=== PATIENT | female | born 1975 | race Caucasian/White ===

== ENCOUNTER 2017-09-22 14:47 | Emergency (ER) | payer OTHER, SELFPAY ==
[2017-09-22 15:05] VITALS: BP 110/69
[2017-09-22] MEDS ORDERED: Aspirin 81 MG Tab.Chew PO ONE (15:27)
[2017-09-22] MEDS ORDERED: Ondansetron 4 MG/2 ML SDV IVPUSH ONE (15:27)
[2017-09-22] MEDS ORDERED: Sodium Chloride 0.9% 10 ML Syringe FLUSH PRN (15:27)
[2017-09-22] MEDS ORDERED: Ketorolac 30 MG/ML SDV IVPUSH ONE (15:27)
--- NOTE | 2017-09-22 15:33 | EDM.PDOC ---
ED HPI GENERAL MEDICAL PROBLEM - General Chief Complaint: Chest Pain Stated Complaint: CHEST PAIN Time Seen by Provider: 09/22/17 15:20 Source of Information: Reports: Patient History Limitations: Reports: No Limitations - History of Present Illness INITIAL COMMENTS - FREE TEXT/NARRATIVE: 42-year-old female presents for evaluation and treatment of chest pain. Patient reports that the chest pain started some by time between noon and 1300. She states at the time she was sitting watching TV. She reports feeling a discomfort located in the center of her chest that shoots into her left axilla. She denies any radiation into her neck or back. She reports associated symptoms of shortness of breath, nausea, headaches and dizziness. She denies any vomiting or syncope. Patient describes the pain as more of a pressure. She states she's never had anything like this before. No treatments prior to arrival in the ER. Reports movement seems to worsen the pain. She denies any trauma to the chest. Patient reports she smokes 2-3 cigarettes per day. Patient denies any cardiac history herself. She reports no family history of any MIs at a young age. Review the patient's records shows she has been seen in the [facility] ER on several occasions. She was seen in [place] on August 19, 2017 for chest pain. She states that her chest pain today feels different than that time. She states at that time she was coughing and fevers which she does not have today. Review the patient's records also should she she has been seen numerous times for migraines. She states that she does have frequent migraines when asked about these. Patient denies any alcohol use. Patient denies any drug use. 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 History: Neurological History: Reports: Migraines Psychiatric History: Reports: Addiction, Anxiety Other Psychiatric History: states that she has been sober and clean for 5 years Oncologic (Cancer) History: Reports: Cervix - Infectious Disease History Infectious Disease History: Reports: Chicken Pox - Past Surgical History HEENT Surgical History: Reports: Adenoidectomy, Tonsillectomy GI Surgical History: Reports: Appendectomy, Cholecystectomy Female Surgical History: Reports: Hysterectomy Social & Family History - Family History Family Medical History: Noncontributory Cardiac: Reports: CAD Respiratory: Reports: Asthma Oncologic: Reports: Lung - Tobacco Use Smoking Status *Q: Current Every Day Smoker Years of Tobacco use: 20 Packs/Tins Daily: 0.4 Used Tobacco, but Quit: No Second Hand Smoke Exposure: No - Caffeine Use Caffeine Use: Reports: Energy Drinks Other Caffeine Use: does have monster drinks about 3-4 daily Caffeine Use Comment: 5-6drinks/day - Alcohol Use Days Per Week of Alcohol Use: 0 - Recreational Drug Use Recreational Drug Use: No Drug Use in Last 12 Months: No Recreational Drug Type: Reports: Methamphetamine Recreational Drug Use Frequency: Not Used In Over 6 Months - Living Situation & Occupation Living situation: Reports: with Family ED ROS GENERAL - Review of Systems Review Of Systems: See Below Constitutional: Denies: Fever Respiratory: Reports: Shortness of Breath. Denies: Cough Cardiovascular: Reports: Chest Pain (substernal radiating to left axilla) GI/Abdominal: Reports: Nausea. Denies: Abdominal Pain, Vomiting Neurological: Reports: Dizziness. Denies: Syncope ED EXAM, GENERAL - Physical Exam Exam: See Below Exam Limited By: No Limitations General Appearance: Alert, WD/WN, No Apparent Distress Eye Exam: Bilateral Eye: Normal Inspection Ears: Normal External Exam Nose: Normal Inspection Throat/Mouth: Normal Inspection, Normal Lips, Normal Voice, No Airway Compromise Neck: Normal Inspection Respiratory/Chest: No Respiratory Distress, Lungs Clear, Normal Breath Sounds, Other (tenderness to the chest to the costal/sternal border around ribs 3 and 4 right sided) Cardiovascular: Normal Peripheral Pulses, Regular Rate, Rhythm, No Murmur GI/Abdominal: Soft, Non-Tender Neurological: Alert, Oriented, Normal Cognition Psychiatric: Normal Affect, Normal Mood Skin Exam: Warm, Dry, Normal Color EKG INTERPRETATION EKG Date: 09/22/17 Time: 16:10 Rhythm: NSR Rate (Beats/Min): 76 [place]: Normal P-Wave: Present QRS: Normal ST-T: Normal QT: Normal EKG Interpretation Comments: NSR at 76 bpm. No acute changes. Reviewed by myself and Dr. Leonard. Course - Vital Signs Last Recorded V/S: Last Vital Signs Temp 36.1 C 09/22/17 15:04 Pulse 86 09/22/17 15:04 Resp 12 09/22/17 15:04 BP 110/69 09/22/17 15:04 Pulse Ox 100 09/22/17 15:04 - Orders/Labs/Meds Orders: Active Orders 24 hr Category Date Time Status Cardiac Monitoring [RC] . DIRECTED Care 09/22/17 15:27 Active EKG Documentation Completion [RC] ASDIRECTED Care 09/22/17 15:03 Active Peripheral IV Care [RC] . DIRECTED Care 09/22/17 15:27 Active Chest 1V Frontal [CR] Stat Exams 09/22/17 15:27 Taken Peripheral IV Insertion Adult [OM.PC] Routine Oth 09/22/17 15:26 Ordered EKG 12 Lead [EK] Stat Ther 09/22/17 15:03 Ordered Labs: Laboratory Tests 09/22/17 09/22/17 09/22/17 Range/Units 16:55 16:55 16:55 WBC 12.18 H (3.98-10.04) K/mm3 RBC 4.27 (3.98-5.22) M/mm3 Hgb 13.6 (11.2-15.7) gm/L Hct 42.1 (34.1-44.9) % MCV 98.6 H (79.4-94.8) fl MCH 31.9 (25.6-32.2) pg MCHC 32.3 (32.2-35.5) g/dl RDW Std Deviation 48.4 H (36.4-46.3) fL Plt Count 244 (182-369) K/mm3 MPV 10.4 (9.4-12.3) fl Neutrophils % (Manual) 58 (40-60) % Band Neutrophils % 1 (0-10) % Lymphocytes % (Manual) 34 (20-40) % Atypical Lymphs % 0 % Monocytes % (Manual) 6 (2-10) % Eosinophils % (Manual) 0 L (0.7-5.8) % Basophils % (Manual) 1 (0.1-1.2) Platelet Estimate Adequate RBC Morph Comment Normal D-Dimer, Quantitative 0.27 (0.19-0.59) mg/L Sodium 141 (136-145) mEq/L Potassium 4.2 (3.5-5.1) mEq/L Chloride 107 (98-107) mEq/L Carbon Dioxide 25 (21-32) mEq/L Anion Gap 13.2 (5-15) BUN 11 (7-18) mg/dL Creatinine 0.8 (0.55-1.02) mg/dL Est Cr Clr Drug Dosing 73.93 mL/min Estimated GFR (MDRD) > 60 (>60) mL/min BUN/Creatinine Ratio 13.8 L (14-18) Glucose 97 (74-106) mg/dL Calcium 8.5 (8.5-10.1) mg/dL Total Bilirubin 0.1 L (0.2-1.0) mg/dL AST 23 (15-37) U/L ALT 28 (14-59) U/L Alkaline Phosphatase 66 (46-116) U/L Troponin I < 0.017 (0.00-0.056) ng/mL C-Reactive Protein < 0.2 (<1.0) mg/dL Total Protein 5.9 L (6.4-8.2) g/dl Albumin 3.1 L (3.4-5.0) g/dl Globulin 2.8 gm/dL Albumin/Globulin Ratio 1.1 (1-2) Lipase 131 (73-393) U/L 09/22/17 Range/Units 18:15 WBC (3.98-10.04) K/mm3 RBC (3.98-5.22) M/mm3 Hgb (11.2-15.7) gm/L Hct (34.1-44.9) % MCV (79.4-94.8) fl MCH (25.6-32.2) pg MCHC (32.2-35.5) g/dl RDW Std Deviation (36.4-46.3) fL Plt Count (182-369) K/mm3 MPV (9.4-12.3) fl Neutrophils % (Manual) (40-60) % Band Neutrophils % (0-10) % Lymphocytes % (Manual) (20-40) % Atypical Lymphs % % Monocytes % (Manual) (2-10) % Eosinophils % (Manual) (0.7-5.8) % Basophils % (Manual) (0.1-1.2) Platelet Estimate RBC Morph Comment D-Dimer, Quantitative (0.19-0.59) mg/L Sodium (136-145) mEq/L Potassium (3.5-5.1) mEq/L Chloride (98-107) mEq/L Carbon Dioxide (21-32) mEq/L Anion Gap (5-15) BUN (7-18) mg/dL Creatinine (0.55-1.02) mg/dL Est Cr Clr Drug Dosing mL/min Estimated GFR (MDRD) (>60) mL/min BUN/Creatinine Ratio (14-18) Glucose (74-106) mg/dL Calcium (8.5-10.1) mg/dL Total Bilirubin (0.2-1.0) mg/dL AST (15-37) U/L ALT (14-59) U/L Alkaline Phosphatase (46-116) U/L Troponin I < 0.017 (0.00-0.056) ng/mL C-Reactive Protein (<1.0) mg/dL Total Protein (6.4-8.2) g/dl Albumin (3.4-5.0) g/dl Globulin gm/dL Albumin/Globulin Ratio (1-2) Lipase (73-393) U/L Meds: Medications Discontinued Medications Generic Name Dose Route Start Last Admin Trade Name Soniya PRN Reason Stop Dose Admin Acetaminophen 975 mg 09/22/17 18:11 09/22/17 18:31 Tylenol PO 09/22/17 18:12 975 mg NOW ONE Administration Aspirin 324 mg 09/22/17 15:27 09/22/17 15:41 Aspirin PO 09/22/17 15:28 324 mg ONETIME ONE Administration Diphenhydramine HCl 25 mg 09/22/17 15:59 09/22/17 16:17 Benadryl PO 09/22/17 16:00 25 mg ONETIME ONE Administration Ketorolac Tromethamine 30 mg 09/22/17 15:27 09/22/17 15:46 Toradol IVPUSH 09/22/17 15:28 30 mg ONETIME ONE Administration Ondansetron HCl 4 mg 09/22/17 15:27 09/22/17 15:45 Zofran IVPUSH 09/22/17 15:28 4 mg ONETIME ONE Administration Sodium Chloride 10 ml 09/22/17 15:27 09/22/17 15:47 Saline Flush FLUSH 10 ml ASDIRECTED PRN Administration Keep Vein Open - Radiology Interpretation Free Text/Narrative:: chest xray shows no acute intrathoracic process. - Re-Assessments/Exams Free Text/Narrative Re-Assessment/Exam: 09/22/17 16:00 Nursing staff informed me that she is having some swelling and redness to her IV site after receiving the Toradol and Zofran. She has received both of these medications in the past without any problems. She is complaining of itchiness to the area. Nursing staff went ahead and pulled her IV at this time. We will give her 25 mg by mouth Benadryl. Plan will be continue to monitor and repeat trop for a 3 hour trop. 09/22/17 19:03 Patient's reported earlier that her chest pain did not resolve with the Toradol and Zofran. Order her some acetaminophen. Given her hypotension, and her documented history of drug abuse I do not feel that she needs narcotics. She is resting comfortable at this time. Repeat trop returned negative at < 0.017 I will discharge her home at this time. Discharge instructions as documented. Departure - Departure Time of Disposition: 19:04 Disposition: Home, Self-Care 01 Condition: Good Clinical Impression: Chest wall pain Instructions: Chest Wall Pain, [id number] Referrals: PCP,None [Primary Care Provider] - Forms: ED Department Discharge Additional Instructions: [id number] Tylenol or Motrin as needed for pain relief. may try ice or heat to the sore area for additional pain relief. may also try topical products such as that he had a BenGay. Recommend follow-up with family medicine or internal medicine in 1-2 weeks to recheck of your symptoms. Recommend Dr. Tillman here at the [facility]. Call [phone] to schedule with him. Please return to the ER if your symptoms change or worsen. - My Orders Last 24 Hours: My Active Orders 09/22/17 15:03 EKG Documentation Completion [RC] ASDIRECTED EKG 12 Lead [EK] Stat 09/22/17 15:26 Peripheral IV Insertion Adult [OM.PC] Routine 09/22/17 15:27 Cardiac Monitoring [RC] . DIRECTED Peripheral IV Care [RC] . DIRECTED Chest 1V Frontal [CR] Stat - Assessment/Plan Last 24 Hours: My Active Orders 09/22/17 15:03 EKG Documentation Completion [RC] ASDIRECTED EKG 12 Lead [EK] Stat 09/22/17 15:26 Peripheral IV Insertion Adult [OM.PC] Routine 09/22/17 15:27 Cardiac Monitoring [RC] . DIRECTED Peripheral IV Care [RC] . DIRECTED Chest 1V Frontal [CR] Stat
[2017-09-22] MEDS ORDERED: diphenhydrAMINE 25 MG Cap PO ONE (15:59)
[2017-09-22] MEDS ORDERED: Acetaminophen 325 MG Tab PO ONE (18:11)
--- NOTE | 2017-09-23 12:22 | CR ---
Chest: Portable view of the chest was obtained. Comparison: Prior chest x-ray of 09/15/15. Heart size and mediastinum are within normal limits. Lungs are clear. Bony structures appear grossly intact. Impression: 1. Nothing acute is appreciated on portable chest x-ray. No significant change is seen from prior chest x-ray. Diagnostic code #1
== END 2017-09-22 19:10 | disposition home or self-care (01) ==
LOC: JD.ED 14:47 → EEVIPCON 14:47 → JD.ED 19:10
DX: R07.89 Other chest pain (principal); F17.210 Nicotine dependence, cigarettes, uncomplicated; Z88.2 Allergy status to sulfonamides
CPT/HCPCS: 36415; 71045; 80053; 83690; 84484; 85025; 85379; 86140; 93005; 96374; 96375; 99285; A9270; J1885; J2405; J7050; 93010; 99284

== ENCOUNTER 2017-10-26 07:27 | Emergency (ER) | payer SELFPAY ==
[2017-10-26 07:37] VITALS: BP 112/71
--- NOTE | 2017-10-26 08:12 | EDM.PDOC ---
ED HPI GENERAL MEDICAL PROBLEM - General Chief Complaint: General Stated Complaint: BODY ACHES,CHILLS,DIARRHEA Time Seen by Provider: 10/26/17 07:44 Source of Information: Reports: Patient, RN Notes Reviewed - History of Present Illness INITIAL COMMENTS - FREE TEXT/NARRATIVE: 42-year-old female with onset of cough and congestion, scratchy throat to 3 days ago. During the night she developed headache, chills, possible fever and generalized myalgias. Feels too sick to work today. She states I just feel achy all over. Cough is mostly nonproductive. clear nasal drainage. 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 History: Neurological History: Reports: Migraines Psychiatric History: Reports: Addiction, Anxiety Other Psychiatric History: states that she has been sober and clean for 5 years Oncologic (Cancer) History: Reports: Cervix - Infectious Disease History Infectious Disease History: Reports: Chicken Pox - Past Surgical History HEENT Surgical History: Reports: Adenoidectomy, Tonsillectomy GI Surgical History: Reports: Appendectomy, Cholecystectomy Female Surgical History: Reports: Hysterectomy Social & Family History - Family History Family Medical History: Noncontributory Cardiac: Reports: CAD Respiratory: Reports: Asthma Oncologic: Reports: Lung - Tobacco Use Smoking Status *Q: Unknown Ever Smoked Years of Tobacco use: 20 Packs/Tins Daily: 0.4 Used Tobacco, but Quit: No Second Hand Smoke Exposure: No - Caffeine Use Caffeine Use: Reports: Energy Drinks Other Caffeine Use: does have monster drinks about 3-4 daily Caffeine Use Comment: 5-6drinks/day - Alcohol Use Days Per Week of Alcohol Use: 0 - Recreational Drug Use Recreational Drug Use: No Drug Use in Last 12 Months: No Recreational Drug Type: Reports: Methamphetamine Recreational Drug Use Frequency: Not Used In Over 6 Months - Living Situation & Occupation Living situation: Reports: with Family ED ROS GENERAL - Review of Systems Review Of Systems: See Below Constitutional: Reports: Fever, Chills HEENT: Reports: Rhinitis, Throat Pain Respiratory: Reports: Cough. Denies: Shortness of Breath, Pleuritic Chest Pain Cardiovascular: Reports: Chest Pain GI/Abdominal: Denies: Abdominal Pain (With coughing), Nausea, Vomiting Musculoskeletal: Reports: Other Skin: Denies: Rash (Generalized achiness) Neurological: Reports: Headache ED EXAM, GENERAL - Physical Exam Exam: See Below General Appearance: Alert, Mild Distress Eye Exam: Bilateral Eye: PERRL Nose: Nasal Drainage Throat/Mouth: Normal Inspection Head: No: Facial Swelling Neck: Supple, Full Range of Motion Respiratory/Chest: No Respiratory Distress, Lungs Clear, Normal Breath Sounds, No Accessory Muscle Use. No: Rhonchi, Wheezing Cardiovascular: Regular Rate, Rhythm Extremities: Normal Inspection, Normal Range of Motion Neurological: Alert, Oriented, No Motor/Sensory Deficits Skin Exam: Warm, Dry, Normal Color Course - Vital Signs Last Recorded V/S: Last Vital Signs Temp 98.6 F 10/26/17 07:35 Pulse 70 10/26/17 07:35 Resp 18 10/26/17 07:35 BP 112/71 10/26/17 07:35 Pulse Ox 99 10/26/17 07:35 Departure - Departure Time of Disposition: 08:10 Disposition: Home, Self-Care 01 Condition: Fair Clinical Impression: Influenza - Discharge Information Referrals: PCP,None [Primary Care Provider] - Forms: ED Department Discharge, ED Return to Work/School Form Additional Instructions: Rest, vaporizer or steam as needed, alternate Tylenol and ibuprofen as needed for discomfort, decongestant as needed. Follow-up clinic if not much better within 3-4 days as expected, you will likely have a cough that may last for another week or 2 but also should gradually get better day by day next week. Return to ED as needed.
== END 2017-10-26 08:20 | disposition home or self-care (01) ==
LOC: JD.ED 07:27
DX: J11.1 Influenza due to unidentified influenza virus with other respiratory manifestations (principal); Z72.0 Tobacco use; Z88.5 Allergy status to narcotic agent; Z88.2 Allergy status to sulfonamides; Z88.8 Allergy status to other drugs, medicaments and biological substances
CPT/HCPCS: 99283

== ENCOUNTER 2017-11-23 09:48 | Emergency (ER) | payer SELFPAY ==
--- NOTE | 2017-11-23 11:16 | EDM.PDOC ---
ED HPI GENERAL MEDICAL PROBLEM - General Chief Complaint: Headache Stated Complaint: HEADACHE/NAUSEA Time Seen by Provider: 11/23/17 10:28 Source of Information: Reports: Patient - History of Present Illness INITIAL COMMENTS - FREE TEXT/NARRATIVE: Patient is here for evaluation of a migraine headache. She does get these on a regular basis he is supposed to be on topiramate daily but she cannot afford this and does not have insurance so she has not been taking it. She states that the per minute and currently is the same as her previous ones, she does not note any difference today. She is presenting to the emergency room as it has persisted for 3 days. She denies any changes in vision but does have some photophobia. She denies any behavioral changes or weakness. Patient denies any other medical history, has a remote history of drug use but none recently. She does note a high intake of caffeine. 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 LMP 10+ years ago when she had a hysterectomy. Headache Pain Score (Numeric/FACES): 9 - Related Data Allergies Allergy/AdvReac Type Severity Reaction Status Date / Time morphine [From Embeda] Allergy Rash Verified 11/23/17 10:05 naltrexone [From Embeda] Allergy Rash Verified 11/23/17 10:05 Sulfa (Sulfonamide Allergy Rash Verified 11/23/17 10:05 Antibiotics) zolmitriptan [From Zomig] Allergy Rash Verified 11/23/17 10:05 Home Meds: Home Meds . 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 History: Neurological History: Reports: Migraines Psychiatric History: Reports: Addiction, Anxiety Other Psychiatric History: states that she has been sober and clean for 5 years Oncologic (Cancer) History: Reports: Cervix - Infectious Disease History Infectious Disease History: Reports: Chicken Pox - Past Surgical History HEENT Surgical History: Reports: Adenoidectomy, Tonsillectomy GI Surgical History: Reports: Appendectomy, Cholecystectomy Female Surgical History: Reports: Hysterectomy Social & Family History - Family History Family Medical History: Noncontributory Cardiac: Reports: CAD Respiratory: Reports: Asthma Oncologic: Reports: Lung - Tobacco Use Smoking Status *Q: Former Smoker Years of Tobacco use: 20 Packs/Tins Daily: 0.1 Used Tobacco, but Quit: No Second Hand Smoke Exposure: No - Caffeine Use Caffeine Use: Reports: Coffee Other Caffeine Use: does have monster drinks about 3-4 daily Caffeine Use Comment: 5-6drinks/day - Alcohol Use Days Per Week of Alcohol Use: 0 - Recreational Drug Use Recreational Drug Use: No Drug Use in Last 12 Months: No Recreational Drug Type: Reports: Methamphetamine Recreational Drug Use Frequency: Not Used In Over 6 Months - Living Situation & Occupation Living situation: Reports: with Family ED ROS GENERAL - Review of Systems Review Of Systems: See Below Constitutional: Reports: Decreased Appetite. Denies: Fever, Chills, Malaise HEENT: Denies: Ear Pain, Sinus Problem, Vision Change Respiratory: Reports: No Symptoms Cardiovascular: Reports: No Symptoms GI/Abdominal: Reports: Diarrhea, Decreased Appetite. Denies: Abdominal Pain, Nausea, Vomiting : Reports: No Symptoms Musculoskeletal: Reports: Muscle Stiffness, Other (Neck pain and stiffness) Skin: Reports: No Symptoms Neurological: Denies: Confusion, Dizziness, Seizure, Change in Speech, Gait Disturbance Psychiatric: Reports: Anxiety. Denies: Confusion, Depression, Suicidal Ideation - Physical Exam Exam: See Below Exam Limited By: No Limitations General Appearance: Alert, WD/WN, Mild Distress Eye Exam: Bilateral Eye: Normal Inspection, PERRL Ears: Normal External Exam, Normal Canal, Normal TMs Nose: Normal Inspection Throat/Mouth: Normal Inspection, Normal Lips, Normal Oropharynx Head Exam: Atraumatic, Normocephalic Neck: Normal Inspection, Supple, Non-Tender Respiratory/Chest: No Respiratory Distress, Lungs Clear, Normal Breath Sounds Cardiovascular: Normal Peripheral Pulses, Regular Rate, Rhythm, No Murmur GI/Abdominal: Normal Bowel Sounds, Soft, Non-Tender Neuro Exam (Abbreviated): Alert, Oriented, CN II-XII Intact, Normal Cognition, No Motor/Sensory Deficits Back Exam: Full Range of Motion, Muscle Spasm (Cervical) Psychiatric: Normal Affect, Normal Mood Skin Exam: Warm, Dry, Intact Course - Vital Signs Last Recorded V/S: Last Vital Signs Temp 97.4 F 11/23/17 10:02 Pulse 68 11/23/17 10:02 Resp 16 03/16/18 10:02 BP 109/70 11/23/17 10:02 Pulse Ox 100 11/23/17 10:02 - Orders/Labs/Meds Meds: Medications Discontinued Medications Generic Name Dose Route Start Last Admin Trade Name Soniya PRN Reason Stop Dose Admin Diphenhydramine HCl 50 mg 11/23/17 12:58 11/23/17 13:08 Benadryl PO 11/23/17 12:59 50 mg ONETIME ONE Administration Sodium Chloride 1,000 mls @ 999 mls/hr 11/23/17 11:34 11/23/17 12:23 Normal Saline IV 11/23/17 12:34 999 mls/hr ONETIME ONE Administration Ketorolac Tromethamine 60 mg 11/23/17 11:34 11/23/17 12:25 Toradol IVPUSH 11/23/17 11:35 Not Given ONETIME ONE Ketorolac Tromethamine 30 mg 11/23/17 12:15 11/23/17 12:21 Toradol IVPUSH 11/23/17 12:16 30 mg ONETIME ONE Administration Metoclopramide HCl 5 mg 11/23/17 12:58 11/23/17 13:08 Reglan IVPUSH 11/23/17 12:59 5 mg ONETIME ONE Administration - Re-Assessments/Exams Free Text/Narrative Re-Assessment/Exam: Persistent migraine which is similar in nature 12 her previous migraines. Neurological exam is normal today. Will start IV fluids and give 30 mg ketorolac. 11/23/17 12:10 Patient's pain persisted she was given Reglan and Benadryl and this improved her headache significantly. She is requesting to be discharged and I feel that this is a reasonable option. Discussed with patient the need to establish with a primary provider so she can be on prophylactic medication. She certainly may return to emergency room if needed. I also recommend that she meet with social worker assistant to seek help in getting insurance. I recommend a daily supplement of 400 mg riboflavin in headache prevention as well. 11/23/17 13:23 11/23/17 13:25 Departure - Departure Time of Disposition: 13:17 Disposition: Home, Self-Care 01 Condition: Good Clinical Impression: Migraine headache Qualifiers: Migraine type: other Status migrainosus presence: without status migrainosus Intractability: not intractable Qualified Code(s): G43.809 - Other migraine, not intractable, without status migrainosus - Discharge Information Instructions: Migraine Headache Referrals: PCP,None [Primary Care Provider] - Forms: ED Department Discharge Additional Instructions: You were treated in the emergency room for migraine headache. I recommend that you consider looking into insurance options that you can be on preventative medication. I would like him to start a supplement of 400 mg riboflavin daily to help with headache prevention, you can purchase this [id number] at [facility] or any pharmacy. You should also taper back on the amount of caffeine intake daily. You need to establish with a primary provider, certainly return to the emergency room if needed.
[2017-11-23] MEDS ORDERED: Ketorolac 30 MG/ML SDV IVPUSH ONE ×2 (11:34→12:15)
[2017-11-23] MEDS ORDERED: Sodium Chloride 0.9% 1,000 ML IV ONE (11:34)
[2017-11-23] MEDS ORDERED: diphenhydrAMINE 50 MG Cap PO ONE (12:58)
[2017-11-23] MEDS ORDERED: Metoclopramide 10 MG/2 ML SDV IVPUSH ONE (12:58)
[2017-11-23 13:36] VITALS: BP 110/67
== END 2017-11-23 13:30 | disposition home or self-care (01) ==
LOC: JD.ED 09:48
DX: G43.809 Other migraine, not intractable, without status migrainosus (principal); Z87.891 Personal history of nicotine dependence; Z88.5 Allergy status to narcotic agent; Z88.2 Allergy status to sulfonamides; Z88.8 Allergy status to other drugs, medicaments and biological substances; Z90.710 Acquired absence of both cervix and uterus
CPT/HCPCS: 96361; 96374; 96375; 99284; A9270; J1885; J2765; J7040

== ENCOUNTER 2017-12-02 18:38 | Emergency (ER) | payer OTHER ==
[2017-12-02 19:54] VITALS: BP 126/88
[2017-12-02] MEDS ORDERED: Orphenadrine 100 MG Tab.ER PO STA (20:54)
[2017-12-02] MEDS ORDERED: Naproxen 500 MG Tab PO ONE (20:55)
--- NOTE | 2017-12-02 21:01 | EDM.PDOC ---
ED HPI GENERAL MEDICAL PROBLEM - General Chief Complaint: Back Pain or Injury Stated Complaint: FALL BACK PAIN Time Seen by Provider: 12/02/17 19:47 Source of Information: Reports: Patient, Old Records ([facility] 11/29/2017) History Limitations: Reports: No Limitations - History of Present Illness INITIAL COMMENTS - FREE TEXT/NARRATIVE: The patient states that she fell at work this past Sunday night, 11/28/2017, landing on her right buttock. She states that she was seen at the [facility] the following day, , 11/29/2017. She states that x-rays were taken, which were negative. She was prescribed Flexeril and diclofenac, however, she has not filled either of these prescriptions. She states that this morning, she felt 3 "pops" in her back. She went to work, but had come early because of back pain. Once home, her back popped again, and her knees buckled. She states that she is able to walk, but when her back popped , she had almost immediate diarrhea at that time. She complains of pain to her sacral area, radiating up her back and down the posterior aspect of her right thigh to the mid thigh. She is most comfortable while lying in a left lateral position. She denies prior back problems. Review of medical records from [facility] dated 11/29/2017 supports the patient 's history, although she reported to the [facility] EDP that the pain radiated down all the way to her right foot. Lumbar radiographs were negative. The patient acknowledges that she has a history of methamphetamine abuse, but that she has not used for 5 years. The patient does not have a PCP. 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: : 6 Para: 4 Neurological History: Reports: Migraines Psychiatric History: Reports: Addiction (methamphetamine), Anxiety Hematologic History: Reports: Blood Transfusion(s) Oncologic (Cancer) History: Reports: Cervix - Infectious Disease History Infectious Disease History: Reports: Chicken Pox - Past Surgical History HEENT Surgical History: Reports: Adenoidectomy, Tonsillectomy GI Surgical History: Reports: Appendectomy, Cholecystectomy, Lysis of Adhesions (x 2) Female Surgical History: Reports: Hysterectomy Social & Family History - Family History Family Medical History: Noncontributory Cardiac: Reports: CAD Respiratory: Reports: Asthma Oncologic: Reports: Lung - Tobacco Use Smoking Status *Q: Current Every Day Smoker Years of Tobacco use: 28 Packs/Tins Daily: 0.3 Packs/Tins Daily Comment: Down from 1 ppd - Caffeine Use Caffeine Use: Reports: Coffee, Soda Other Caffeine Use: does have monster drinks about 3-4 daily Caffeine Use Comment: 5-6drinks/day - Alcohol Use Alcohol Use History: Yes Days Per Week of Alcohol Use: 0 Alcohol Use Frequency: Socially - Recreational Drug Use Recreational Drug Use: Yes Drug Use in Last 12 Months: No Recreational Drug Type: Reports: Methamphetamine (last used 2012) - Living Situation & Occupation Living situation: Reports: , with Family (Mother, 2 kids) 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 ED EXAM,LOWER BACK PAIN/INJURY - Physical Exam Exam: See Below Exam Limited By: No Limitations General Appearance: Alert, WD/WN, Anxious Back Exam: Other (No visible abnormality to the patient's lower back or right buttock, such as swelling, erythema, ecchymosis, or abrasion. The patient reports tenderness to palpation along the entire lumbar spinous processes, sacrum, and right buttock. She also reports tenderness to the lumbar paraspinous , but not as bad as the spinous process tenderness. Straight leg raise on the left is negative at 90. Straight leg raise on the right induces right hip pain at 70. The patient is able to sit on the gurney with her legs extended at 90. She is able to flex the spine to 90 when standing. She is able to extend the spine to 20. She is able to tilt to the left to 10-15, and to the right to 10 . She is able to twist the spine to 30 bilaterally. Unilateral knee bend is normal bilaterally.) Course - Vital Signs Last Recorded V/S: Last Vital Signs Temp 36.4 C 12/02/17 19:50 Pulse 88 12/02/17 19:50 Resp 18 12/02/17 19:50 BP 126/88 12/02/17 19:50 Pulse Ox 99 12/02/17 19:50 - Orders/Labs/Meds Meds: Medications Discontinued Medications Generic Name Dose Route Start Last Admin Trade Name Soniya PRN Reason Stop Dose Admin Naproxen 500 mg 12/02/17 20:55 12/02/17 21:01 Naprosyn PO 12/02/17 20:56 500 mg ONETIME ONE Administration Orphenadrine Citrate 100 mg 12/02/17 20:54 12/02/17 21:01 Norflex PO 12/02/17 20:55 100 mg ONETIME STA Administration - Re-Assessments/Exams Free Text/Narrative Re-Assessment/Exam: 12/02/17 20:57 Significant delay in discharging the patient due to my attending to a critically ill patient. I don't believe that the patient is drug-seeking, but there are some curious findings on her physical exam, including tenderness to the spinous processes, which would only occur if she had a spinous process fracture or a tear in an intraspinous ligament. Further, she reports significant pain in her right hip with a straight leg raise to 70, yet she is able to sit on the gurney with both of her legs outstretched, flexed at 90, and is able to flex the spine to 90 while standing. To account for these inconsistencies, I suspect that the patient does in fact have some pain to her lower back, right buttock, with some radicular symptoms going down her right lower extremity, but she may have felt that she would not be believed if she did not imply tenderness and pain on exam. Based on the patient's history and physical examination, she MAY have a herniated intervertebral disc on the right. She was prescribed Flexeril and diclofenac at the [facility] on 11/29/2017, however, she has not yet filled the prescriptions. I am recommending that we prescribe Norflex instead of Flexeril, but I agree with diclofenac. I will refer her to Dr. Krista Terrazas for follow-up. Departure - Departure Time of Disposition: 20:58 Disposition: Home, Self-Care 01 Condition: Good Clinical Impression: Low back pain - Discharge Information Prescriptions: Orphenadrine [Norflex] 1 tab PO Q12H PRN #14 tab.er PRN Reason: Muscle Spasm Instructions: Back Pain, Adult, [id number] Referrals: PCP,None [Primary Care Provider] - Krista Terrazas MD [Physician] - Forms: ED Department Discharge Additional Instructions: You were seen in the emergency room for low back pain radiating down the back of your right thigh after a fall at work on 11/28/2017. Based on your history and physical examination, you MAY have a herniated intervertebral disc. You were previously prescribed Flexeril and diclofenac, but have not filled either prescription. We recommend that instead of Flexeril, you take Norflex. A prescription for this [facility] been [facility]. Take one tablet every 12 hours, as prescribed. We agree with the prescription for diclofenac. Take as prescribed, with food. Follow-up with Dr. Krista Terrazas as a primary care physician. If any other problems, please do not hesitate to return to the ER.
== END 2017-12-02 21:10 | disposition home or self-care (01) ==
LOC: JD.ED 18:38
DX: M54.5 Low back pain (principal); F17.210 Nicotine dependence, cigarettes, uncomplicated; Z88.2 Allergy status to sulfonamides; Z88.8 Allergy status to other drugs, medicaments and biological substances; Z88.5 Allergy status to narcotic agent; W19.XXXA Unspecified fall, initial encounter; Y99.0 Civilian activity done for income or pay
CPT/HCPCS: 99283; A9270

== ENCOUNTER 2017-12-15 22:07 | Emergency (ER) | payer MEDICAID, OTHER ==
[2017-12-15 22:18] VITALS: BP 116/81
--- NOTE | 2017-12-15 22:57 | EDM.PDOC ---
ED HPI GENERAL MEDICAL PROBLEM - General Chief Complaint: Chest Pain Stated Complaint: CHEST PAINS Time Seen by Provider: 12/15/17 22:32 Source of Information: Reports: Patient History Limitations: Reports: No Limitations - History of Present Illness INITIAL COMMENTS - FREE TEXT/NARRATIVE: This is a 42-year-old female. She was working at [employer] when she became stressed guarded hyperventilating developed chest pain and then had one of her coworkers bring her to the ER. She lives in [place] with her mother and she states that she works all the time only has Sunday and Sunday off. She says she works all the time and she stressed out and she is depressed and the last culture she talked to a [facility] so she has no one to talk to. She feels dumb for being here she keeps apologizing for bothering us. She is crying during the interview stated that she scared and anything that bothers her the most is not happening now but happened when she was at [employer] that she would get twitching in her face. She complains of generalized chest tightness or pain that does not go into her neck or down her arms. She has no nausea and vomiting she has no diaphoresis. Chest Pain Score (Numeric/FACES): 9 - Related Data Allergies Allergy/AdvReac Type Severity Reaction Status Date / Time morphine [From Embeda] Allergy Rash Verified 12/15/17 22:14 naltrexone [From Embeda] Allergy Rash Verified 12/15/17 22:14 Sulfa (Sulfonamide Allergy Rash Verified 12/15/17 22:14 Antibiotics) zolmitriptan [From Zomig] Allergy Rash Verified 12/15/17 22:14 Home Meds: Home Meds Orphenadrine [Norflex] 1 tab PO Q12H PRN #14 tab.er 12/02/17 [Rx] Diclofenac? 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 History: Neurological History: Reports: Migraines Psychiatric History: Reports: Addiction, Anxiety Other Psychiatric History: states that she has been sober and clean for 5 years Hematologic History: Reports: Blood Transfusion(s) Oncologic (Cancer) History: Reports: Cervix - Infectious Disease History Infectious Disease History: Reports: Chicken Pox - Past Surgical History HEENT Surgical History: Reports: Adenoidectomy, Tonsillectomy GI Surgical History: Reports: Appendectomy, Cholecystectomy, Lysis of Adhesions Female Surgical History: Reports: Hysterectomy Social & Family History - Family History Family Medical History: Noncontributory Cardiac: Reports: CAD Respiratory: Reports: Asthma Oncologic: Reports: Lung - Tobacco Use Smoking Status *Q: Current Every Day Smoker Years of Tobacco use: 20 Packs/Tins Daily: 0.1 Used Tobacco, but Quit: No Second Hand Smoke Exposure: No - Caffeine Use Caffeine Use: Reports: Coffee, Soda Other Caffeine Use: does have monster drinks about 3-4 daily Caffeine Use Comment: 5-6drinks/day - Alcohol Use Days Per Week of Alcohol Use: 0 - Recreational Drug Use Recreational Drug Use: Yes Drug Use in Last 12 Months: No Recreational Drug Type: Reports: Methamphetamine (last used 2012) Recreational Drug Use Frequency: Not Used In Over 6 Months - Living Situation & Occupation Living situation: Reports: , with Family (Mother, 2 kids) 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 Denies: Wheezing, Cough Cardiovascular: Reports: Chest Pain. Denies: Edema Endocrine: Reports: No Symptoms GI/Abdominal: Denies: Abdominal Pain, Diarrhea, Nausea, Vomiting : Reports: No Symptoms Musculoskeletal: Reports: No Symptoms Skin: Reports: No Symptoms Neurological: Reports: No Symptoms Psychiatric: Reports: Anxiety, Depression Hematologic/Lymphatic: Reports: No Symptoms ED EXAM, GENERAL - Physical Exam Exam: See Below Exam Limited By: No Limitations General Appearance: Alert, WD/WN, Anxious, Moderate Distress, Other (Patient is crying during the interview complaining that she has to work all the time and she stressed out) Eye Exam: Bilateral Eye: Normal Inspection Ears: Normal External Exam, Normal Canal, Normal TMs Nose: Normal Inspection Throat/Mouth: Normal Inspection, Normal Lips, Normal Oropharynx, Normal Voice, No Airway Compromise Head: Normocephalic Neck: Supple Respiratory/Chest: No Respiratory Distress, Lungs Clear, Normal Breath Sounds, Other (Increased respiratory rate) Cardiovascular: Regular Rate, Rhythm, No Murmur GI/Abdominal: Soft, Non-Tender Back Exam: Full Range of Motion Extremities: Normal Inspection, Normal Range of Motion Neurological: Alert, Oriented Psychiatric: Anxious, Depressed Mood Skin Exam: Warm, Dry EKG INTERPRETATION EKG Date: 12/15/17 Time: 22:58 EKG Interpretation Comments: EKG shows a sinus rhythm normal, no acute ST or T-wave changes, no ischemia noted, the interpretation suggest an anterior septal infarct that is old however is just a poor R-wave progression in the anterior leads. She has no history of myocardial infarctions in the past. Course - Vital Signs Last Recorded V/S: Last Vital Signs Temp 97.8 F 12/15/17 22:15 Pulse 90 12/15/17 22:15 Resp 22 H 12/15/17 22:15 BP 116/81 12/15/17 22:15 Pulse Ox 99 12/15/17 22:15 - Orders/Labs/Meds Orders: Active Orders 24 hr Category Date Time Status EKG 12 Lead [EKG Documentation Completion] [RC] STAT Care 12/15/17 23:15 Active Sodium Chloride 0.9% [Normal Saline] 1,000 ml Med 12/15/17 23:15 Active IV ASDIRECTED Medication Orders Sodium Chloride (Normal Saline) 1,000 mls @ 1,000 mls/hr IV ASDIRECTED CHAU Last Admin: 12/15/17 23:28 Dose: 1,000 mls/hr Labs: Laboratory Tests 12/15/17 12/15/17 Range/Units 23:05 23:05 WBC 13.62 H (3.98-10.04) K/mm3 RBC 4.08 (3.98-5.22) M/mm3 Hgb 12.9 (11.2-15.7) gm/L Hct 38.2 (34.1-44.9) % MCV 93.6 (79.4-94.8) fl MCH 31.6 (25.6-32.2) pg MCHC 33.8 (32.2-35.5) g/dl RDW Std Deviation 45.6 (36.4-46.3) fL Plt Count 287 (182-369) K/mm3 MPV 10.5 (9.4-12.3) fl Neut % (Auto) 56.3 (34.0-71.1) % Lymph % (Auto) 37.1 (19.3-51.7) % [place] % (Auto) 5.1 (4.7-12.5) % Eos % (Auto) 1.1 (0.7-5.8) Baso % (Auto) 0.2 (0.1-1.2) % Neut # (Auto) 7.67 H (1.56-6.13) K/mm3 Lymph # (Auto) 5.05 H (1.18-3.74) K/mm3 [place] # (Auto) 0.69 H (0.24-0.36) K/mm3 Eos # (Auto) 0.15 (0.04-0.36) K/mm3 Baso # (Auto) 0.03 (0.01-0.08) K/mm3 Manual Slide Review Normal smear Sodium 143 (136-145) mEq/L Potassium 3.3 L (3.5-5.1) mEq/L Chloride 106 (98-107) mEq/L Carbon Dioxide 26 (21-32) mEq/L Anion Gap 14.3 (5-15) BUN 19 H (7-18) mg/dL Creatinine 1.0 (0.55-1.02) mg/dL Est Cr Clr Drug Dosing 59.15 mL/min Estimated GFR (MDRD) > 60 (>60) mL/min BUN/Creatinine Ratio 19.0 H (14-18) Glucose 89 (74-106) mg/dL Calcium 8.9 (8.5-10.1) mg/dL Total Bilirubin 0.3 (0.2-1.0) mg/dL AST 21 (15-37) U/L ALT 22 (14-59) U/L Alkaline Phosphatase 63 (46-116) U/L Troponin I < 0.017 (0.00-0.056) ng/mL Total Protein 7.0 (6.4-8.2) g/dl Albumin 3.9 (3.4-5.0) g/dl Globulin 3.1 gm/dL Albumin/Globulin Ratio 1.3 (1-2) Meds: Medications Generic Name Dose Route Start Last Admin Trade Name Freq PRN Reason Stop Dose Admin Sodium Chloride 1,000 mls @ 1,000 mls/hr 12/15/17 23:15 12/15/17 23:28 Normal Saline IV 1,000 mls/hr ASDIRECTED CHAU Administration Discontinued Medications Generic Name Dose Route Start Last Admin Trade Name Soniya PRN Reason Stop Dose Admin Lorazepam 0.5 mg 12/15/17 23:15 12/15/17 23:29 Ativan IVPUSH 12/15/17 23:16 0.5 mg ONETIME ONE Administration - Re-Assessments/Exams Free Text/Narrative Re-Assessment/Exam: 12/16/17 00:25 I spoke to the patient at length regarding her lab work and her normal troponin. I also went over with her her EKG that was normal. I did encourage her to go to the [facility] on Sunday 8 AM and walk in to be seen regarding counseling for her anxiety and her depression. I will give her off work from here through Sunday so she has a chance to be seen at [facility]. 12/16/17 00:30 I again went in the room and spoke to her about the need to be seen and get some counseling because I think it'll make a big difference in her life. She understands. Departure - Departure Time of Disposition: 00:27 Disposition: Home, Self-Care 01 Condition: Fair Clinical Impression: Atypical chest pain, Generalized anxiety disorder, Situational depression Forms: ED Department Discharge, ED Return to Work/School Form Additional Instructions: Rest and sleep as much as possible, follow up with a [facility] on Sunday, at 8 AM your just walk in to be evaluated for counseling for your depression and anxiety, follow-up with your family doctor as needed or return to the ER as needed - My Orders Last 24 Hours: My Active Orders 12/15/17 23:15 EKG 12 Lead [EKG Documentation Completion] [RC] STAT Sodium Chloride 0.9% [Normal Saline] 1,000 ml IV ASDIRECTED - Assessment/Plan Last 24 Hours: My Active Orders 12/15/17 23:15 EKG 12 Lead [EKG Documentation Completion] [RC] STAT Sodium Chloride 0.9% [Normal Saline] 1,000 ml IV ASDIRECTED
[2017-12-15] MEDS ORDERED: Sodium Chloride 0.9% 1,000 ML IV SCH (23:15)
[2017-12-15] MEDS ORDERED: LORazepam 2 MG/ML SDV IVPUSH ONE (23:15)
== END 2017-12-16 00:35 | disposition home or self-care (01) ==
LOC: JD.ED 22:07
DX: F41.1 Generalized anxiety disorder (principal); F43.21 Adjustment disorder with depressed mood; R07.89 Other chest pain; F17.210 Nicotine dependence, cigarettes, uncomplicated; Z88.5 Allergy status to narcotic agent; Z88.2 Allergy status to sulfonamides; Z88.8 Allergy status to other drugs, medicaments and biological substances
CPT/HCPCS: 36415; 80053; 84484; 85025; 93005; 96361; 96374; 99285; J2060; J7040; 93010; 99284

== ENCOUNTER 2019-01-27 11:19 | Emergency (ER) | payer BC, MEDICAID, OTHER ==
[2019-01-27 11:30] VITALS: BP 122/91
[2019-01-27] MEDS ORDERED: Haloperidol Lactate 5 MG/ML SDV IM ONE (11:31)
[2019-01-27] MEDS ORDERED: Sodium Chloride 0.9% 10 ML Syringe FLUSH PRN (11:31)
[2019-01-27] MEDS ORDERED: Benztropine 1 MG Tab PO ONE (11:32)
[2019-01-27] MEDS ORDERED: Ondansetron 4 MG/2 ML SDV IVPUSH ONE (11:39)
--- NOTE | 2019-01-27 11:40 | EDM.PDOC ---
ED HPI GENERAL MEDICAL PROBLEM - General Chief Complaint: Headache Stated Complaint: MIGRAINE,DIAHREA Time Seen by Provider: 01/27/19 11:22 Source of Information: Reports: Patient History Limitations: Reports: No Limitations - History of Present Illness INITIAL COMMENTS - FREE TEXT/NARRATIVE: 43 y/o female presents to ER with cc migraine headache. She states headache started last evening. She normally takes Topamax for her migraines but left her medication at home in [place]. She reports the is here visiting family. She denies and N/V or fever, no neck pain. She does not have a PCP. She is accompanied by her daughter. Onset Date: 01/26/19 Onset Time: 21:00 Location: Reports: Head Quality: Reports: Throbbing Severity: Mild Improves with: Reports: Medication Worsens with: Reports: None Associated Symptoms: Denies: Chest Pain, Cough, Fever/Chills, Nausea/Vomiting, Shortness of Breath, Syncope Headache Pain Score (Numeric/FACES): 7 - Related Data Allergies Allergy/AdvReac Type Severity Reaction Status Date / Time morphine [From Embeda] Allergy Rash Verified 01/27/19 11:25 naltrexone [From Embeda] Allergy Rash Verified 01/27/19 11:25 Sulfa (Sulfonamide Allergy Rash Verified 01/27/19 11:25 Antibiotics) zolmitriptan [From Zomig] Allergy Rash Verified 01/27/19 11:25 Home Meds: Home Meds Topiramate 25 mg PO DAILY 01/27/19 [History] Past Medical History - Past Health History Medical/Surgical History: Denies Medical/Surgical History TITRATOR History: Reports: Other TITRATOR History: Neurological History: Reports: Migraines Psychiatric History: Reports: Addiction, Anxiety Other Psychiatric History: states 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) Hematologic History: Reports: Blood Transfusion(s) Oncologic (Cancer) History: Reports: Cervix - Infectious Disease History Infectious Disease History: Reports: Chicken Pox, Measles, Mumps - Past Surgical History HEENT Surgical History: Reports: Adenoidectomy, Tonsillectomy GI Surgical History: Reports: Appendectomy, Cholecystectomy, Lysis of Adhesions Female Surgical History: Reports: Hysterectomy, Oophorectomy Social & Family History - Family History Family Medical History: Noncontributory Cardiac: Reports: CAD Respiratory: Reports: Asthma Oncologic: Reports: Lung - Tobacco Use Smoking Status *Q: Current Every Day Smoker Years of Tobacco use: 30 Packs/Tins Daily: 0.3 - Caffeine Use Caffeine Use: Reports: Energy Drinks Other Caffeine Use: does have monster drinks about 3-4 daily Caffeine Use Comment: 5-6drinks/day - Recreational Drug Use Recreational Drug Use: No - Living Situation & Occupation Living situation: Reports: , with Family (Mother, 2 kids) 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 Denies: Dizziness, Numbness, Syncope, Weakness , Gait Disturbance Psychiatric: Reports: No Symptoms Hematologic/Lymphatic: Reports: No Symptoms Immunologic: Reports: No Symptoms - Physical Exam Exam: See Below Exam Limited By: No Limitations General Appearance: Alert, WD/WN, No Apparent Distress Eye Exam: Bilateral Eye: EOMI, PERRL Ears: Normal External Exam, Normal Canal, Hearing Grossly Normal, Normal TMs Nose: Normal Inspection, Normal Mucosa, No Blood Throat/Mouth: Normal Inspection, Normal Lips, Normal Teeth, Normal Gums, Normal Oropharynx, Normal Voice, No Airway Compromise Head Exam: Atraumatic, Normocephalic Neck: Normal Inspection, Supple, Non-Tender, Full Range of Motion Respiratory/Chest: No Respiratory Distress, Lungs Clear, Normal Breath Sounds, No Accessory Muscle Use, Chest Non-Tender Cardiovascular: Normal Peripheral Pulses, Regular Rate, Rhythm, No Edema, No Gallop, No JVD, No Murmur, No Rub Neuro Exam (Abbreviated): Alert, Oriented, CN II-XII Intact, Normal Cognition, Normal Gait, Normal Reflexes, No Motor/Sensory Deficits Back Exam: Normal Inspection, Full Range of Motion Extremities: Normal Inspection, Normal Range of Motion, Non-Tender, No Pedal Edema, Normal Capillary Refill Psychiatric: Normal Affect, Normal Mood Skin Exam: Warm, Dry, Intact, Normal Color, No Rash Course - Vital Signs Last Recorded V/S: Last Vital Signs Temp 98.0 F 05/20/19 11:26 Pulse 79 01/27/19 11:26 Resp 20 01/27/19 11:26 BP 122/91 H 01/27/19 11:26 Pulse Ox 100 01/27/19 11:26 - Orders/Labs/Meds Orders: Active Orders 24 hr Category Date Time Status Sodium Chloride 0.9% [Normal Saline] 1,000 ml Med 01/27/19 11:45 Active IV ASDIRECTED Sodium Chloride 0.9% [Saline Flush] Med 01/27/19 11:31 Active 10 ml FLUSH ASDIRECTED PRN Saline Lock Insert [OM.PC] Routine Oth 01/27/19 11:31 Ordered Medication Orders Sodium Chloride (Normal Saline) 1,000 mls @ 999 mls/hr IV ASDIRECTED CHAU Last Admin: 01/27/19 11:43 Dose: 999 mls/hr Sodium Chloride (Saline Flush) 10 ml FLUSH ASDIRECTED PRN PRN Reason: Keep Vein Open Last Admin: 01/27/19 11:44 Dose: 10 ml Meds: Medications Generic Name Dose Route Start Last Admin Trade Name Freq PRN Reason Stop Dose Admin Sodium Chloride 1,000 mls @ 999 mls/hr 01/27/19 11:45 01/27/19 11:43 Normal Saline IV 999 mls/hr ASDIRECTED CHAU Administration Sodium Chloride 10 ml 01/27/19 11:31 01/27/19 11:44 Saline Flush FLUSH 10 ml ASDIRECTED PRN Administration Keep Vein Open Discontinued Medications Generic Name Dose Route Start Last Admin Trade Name Freq PRN Reason Stop Dose Admin Benztropine Mesylate 1 mg 01/27/19 11:32 01/27/19 11:43 Cogentin PO 01/27/19 11:33 1 mg ONETIME ONE Administration Haloperidol Lactate 5 mg 01/27/19 11:31 01/27/19 11:43 Haldol IM 01/27/19 11:32 5 mg ONETIME ONE Administration Ondansetron HCl 4 mg 01/27/19 11:39 01/27/19 11:49 Zofran IVPUSH 01/27/19 11:40 4 mg ONETIME ONE Administration - Re-Assessments/Exams Free Text/Narrative Re-Assessment/Exam: 01/27/19 12:24 43 y/o female presented to ER with cc migraine headache that started yesterday. She received IVF, Zofran, Cogentin and Haldol and her condition improved. I will discharge home with instructions to take her Topamax as indicated for migraines. I instructed her to follow up with her PCP. Instructed to return to the ER for any new or acute worsening symptoms. She verbalized understanding and is comfortable with plan for discharge. Departure - Departure Time of Disposition: 12:25 Disposition: Home, Self-Care 01 Condition: Good Clinical Impression: Migraine Qualifiers: Migraine type: with aura Status migrainosus presence: without status migrainosus Intractability: not intractable Qualified Code(s): G43.109 - Migraine with aura, not intractable, without status migrainosus - Discharge Information Instructions: Migraine Headache, [id number] Referrals: PCP,None [Primary Care Provider] - Forms: ED Department Discharge Additional Instructions: You have been diagnosis with a migraine headache. You should take your Topamax as prescribed. Follow up with your PCP. Return to the ER for any new or acute worsening symptoms. - My Orders Last 24 Hours: My Active Orders 01/27/19 11:31 Sodium Chloride 0.9% [Saline Flush] 10 ml FLUSH ASDIRECTED PRN Saline Lock Insert [OM.PC] Routine 01/27/19 11:45 Sodium Chloride 0.9% [Normal Saline] 1,000 ml IV ASDIRECTED - Assessment/Plan Last 24 Hours: My Active Orders 01/27/19 11:31 Sodium Chloride 0.9% [Saline Flush] 10 ml FLUSH ASDIRECTED PRN Saline Lock Insert [OM.PC] Routine 01/27/19 11:45 Sodium Chloride 0.9% [Normal Saline] 1,000 ml IV ASDIRECTED
[2019-01-27] MEDS ORDERED: Sodium Chloride 0.9% 1,000 ML IV SCH (11:45)
== END 2019-01-27 12:51 | disposition home or self-care (01) ==
LOC: JD.ED 11:19
DX: G43.909 Migraine, unspecified, not intractable, without status migrainosus (principal); F17.210 Nicotine dependence, cigarettes, uncomplicated; F41.9 Anxiety disorder, unspecified; Z79.899 Other long term (current) drug therapy; Z88.5 Allergy status to narcotic agent; Z88.2 Allergy status to sulfonamides; Z88.8 Allergy status to other drugs, medicaments and biological substances
CPT/HCPCS: 96361; 96372; 96374; 99283; A9270; J1630; J2405; J7040; 99284